=== PATIENT | female | born 1960 | race Caucasian/White ===

== ENCOUNTER 2019-04-22 05:40 | Day surgery (SDC) | payer OTHER ==
[~2019-04-22 05:40] MED LIST: ACTOS15 MG PO; AMARYL PO; AVAPRO300 MG PO; CARAFATE PO; CRESTOR PO; METFORMIN HCL850 MG PO; NABUMETONE500 MG PO; NORVASC2.5 M1 PO; PEPCI PO; PERCOCET 5/3251 TAB PO; SYNTHROID150 MCG PO
[2019-04-22] MEDS ORDERED: NABUMETONE500 MG PO (09:36)
[2019-04-22] MEDS ORDERED: PERCOCET 5-3251 EACH PO (09:36)
== END 2019-04-22 13:10 | disposition home or self-care (01) ==
LOC: CIR.AMB 05:40
DX: M23.321 Other meniscus derangements, posterior horn of medial meniscus, right knee (principal); M23.311 Other meniscus derangements, anterior horn of medial meniscus, right knee; M23.351 Other meniscus derangements, posterior horn of lateral meniscus, right knee; M94.261 Chondromalacia, right knee; M65.861 Other synovitis and tenosynovitis, right lower leg

== ENCOUNTER 2021-04-19 07:24 | Day surgery (SDC) | payer OTHER ==
[~2021-04-19 07:24] MED LIST changes: +JANUVIA100 MG PO; +PERCOCET 5-3251 EACH PO; +ROSUVASTATIN CAL5 MG PO
[2021-04-19] MEDS ORDERED: PERCOCET 5-3251 EACH PO (11:04)
[2021-04-19] MEDS ORDERED: NABUMETONE500 MG PO (11:05)
== END 2021-04-19 14:00 | disposition home or self-care (01) ==
LOC: CIR.AMB 07:24
PROVIDERS: ATTEND Orthopaedic Surgery
DX: M75.122 Complete rotator cuff tear or rupture of left shoulder, not specified as traumatic (principal); M22.42 Chondromalacia patellae, left knee; M75.52 Bursitis of left shoulder; M24.612 Ankylosis, left shoulder; M66.822 Spontaneous rupture of other tendons, left upper arm; Z20.822 Contact with and (suspected) exposure to COVID-19

== ENCOUNTER 2025-04-20 07:45 | Inpatient (IN) | payer OTHER ==
[~2025-04-20] VITALS: Ht 160 cm; Wt 88.5 kg
[2025-04-20] MEDS ORDERED: SYNTHROID150 MCG PO (08:24)
[2025-04-20] MEDS ORDERED: SYNTHROID137 MCG PO (08:24)
[2025-04-20] MEDS ORDERED: CARAFATE1 GM/10 ML (08:27)
[2025-04-20] MEDS ORDERED: PEPCID AC20 MG PO (08:27)
[2025-04-20] MEDS ORDERED: TRULICITY1.5 MG/0.5 (08:27)
[2025-04-20 08:31] VITALS: BP 123/75
[2025-04-20 08:37] LABS: BASO % 0.7 % (0.1-1.2); EOS # 0.23 (0.04-0.54); EOS % 2.6 % (0.7-7.0); HEMATOCRIT 37.9 % (34.1-44.9); HEMOGLOBIN 12.9 g/dL (11.2-15.7); LYMPH # 2.62 (1.18-3.74); LYMPH % 29.2 % (19.3-53.1); MEAN CORPUSCULAR HEMOGLOBIN 30.4 pg (25.6-32.2); MONO # 0.48 (0.24-0.82); MONO % 5.3 % (4.7-12.5); NEUT # 5.56 (1.56-6.13); NEUT % 61.9 % (34.0-71.1); PLATELET COUNT 337 K/uL (163-369); RED BLOOD COUNT 4.24 M/uL (3.93-5.22); RED CELL DISTRIBUTION WIDTH 13.6 % (11.6-14.4)
[2025-04-20 08:44] LABS: URINE APPEARANCE Clear; URINE BILIRRUBIN Negative (NEGATIVE); URINE BLOOD Negative; URINE COLOR Yellow; URINE GLUCOSE Negative (NEGATIVE); URINE KETONE Negative (NEGATIVE); URINE LEUKOCYTE Negative; URINE NITRATE Negative; URINE PROTEIN Negative (NEGATIVE); URINE UROBILINOGEN 0.2 E.U./dl
[2025-04-20 08:45] LABS: URINE BACTERIA 45.2 uL (0.0-1933); URINE EPITHELIAL CELLS 4.7 uL (0.0-38.8); URINE WBC 3.7 uL (0.0-23.2)
[2025-04-20 09:09] LABS: INR < 0.93; PARTIAL THROMBOPLASTIN TIME 25.8 SECONDS (22.0-34.0)
[2025-04-20 09:14] LABS: URINE CAST 0.14 uL (0.0-1.40); URINE RBC 0.2 uL (0.0-20.8)
[2025-04-20 09:37] LABS: BILIRUBIN TOTAL 0.35 mg/dL (0.3-1.2); CALCIUM 9.5 mg/dL (8.5-10.1); CREATININE SERUM 1.01 mg/dL (0.55-1.02); GFR 55.18; GLOBULINA 3.5 G/DL (2.4-3.5); POTASSIUM 4.11 mEq/L (3.5-5.1); TOTAL PROTEIN 7.5 gm/dL (6.4-8.2)
[2025-04-28] MEDS ORDERED: BUPIVACAINE HCL/MPF 0.5% 30ML VIAL ONE (06:33)
[2025-04-28] MEDS ORDERED: KETOROLAC TROMETHAMINE 60 MG VIAL IM ONE (06:33)
[2025-04-28] MEDS ORDERED: VANCOMYCIN HCL 1,000 MG VIAL ONE (06:33)
[2025-04-28] MEDS ORDERED: LIDOCAINE HCL 1%/EPINEPHRINE 20ML VIAL IJ ONE (06:33)
[2025-04-28] MEDS ORDERED: CEFAZOLIN SODIUM 1,000 MG VIAL ONE ×2 (06:51→12:09)
[2025-04-28] MEDS ORDERED: TRANEXAMIC ACID 100MG/1ML (1000MG) AMPUL IV ONE (07:05)
[2025-04-28] MEDS ORDERED: MORPHINE SULFATE 4 MG/ML VIAL IV ONE ×2 (08:30→11:15)
[2025-04-28] MEDS ORDERED: OxyCODONE HCL 5 MG TABLET (ROXICODONE) PO PRN (10:00)
[2025-04-28] MEDS ORDERED: ONDANSETRON HCL 2 MG/ML VIAL IV PRN (10:00)
[2025-04-28] MEDS ORDERED: MORPHINE SULFATE 4 MG/ML CARTRIDGE IV SCH (12:00)
[2025-04-28] MEDS ORDERED: CEFAZOLIN SODIUM 1,000 MG VIAL IV SCH (12:00)
[2025-04-28] MEDS ORDERED: ACETAMINOPHEN 325 MG TABLET PO PRN (12:15)
[2025-04-28 13:40] VITALS: BP 109/61; O2SAT 95
[2025-04-28 16:00] VITALS: BP 105/57; O2SAT 100
[2025-04-28] MEDS ORDERED: INSULIN LISPRO 1,000 UNIT/10 ML UNITS SUBCUTANEO PRN (20:15)
[2025-04-28] MEDS ORDERED: DEXTROSE 50 % IN WATER 0.5 G/ML VIAL IV PRN (20:15)
[2025-04-28] MEDS ORDERED: ORPHENADRINE CITRATE 100 MG TABLET PO SCH (21:00)
[2025-04-28] MEDS ORDERED: GABAPENTIN 100 MG CAPSULE PO SCH (21:00)
[2025-04-28] MEDS ORDERED: ENALAPRILAT DIHYDRATE 1.25 MG/ML VIAL IV PRN (23:15)
[2025-04-29 01:40] VITALS: BP 112/57; O2SAT 96
[2025-04-29] MEDS ORDERED: LEVOTHYROXINE SODIUM 150 MCG TABLET PO SCH (06:00)
[2025-04-29 08:15] LABS: BASO % 0.5 % (0.1-1.2); EOS % 0.9 % (0.7-7.0); HEMATOCRIT 31.2 % (34.1-44.9); HEMOGLOBIN 10.6 g/dL (11.2-15.7); LYMPH # 2.04 (1.18-3.74); LYMPH % 17.6 % (19.3-53.1); MEAN CORPUSCULAR HEMOGLOBIN 30.1 pg (25.6-32.2); MONO # 1.16 (0.24-0.82); NEUT # 8.17 (1.56-6.13); NEUT % 70.7 % (34.0-71.1); PLATELET COUNT 271 K/uL (163-369); RED BLOOD COUNT 3.52 M/uL (3.93-5.22); RED CELL DISTRIBUTION WIDTH 14.1 % (11.6-14.4)
[2025-04-29 08:47] VITALS: BP 155/87; O2SAT 98
[2025-04-29] MEDS ORDERED: IRBESARTAN 300 MG TABLET PO SCH (09:00)
[2025-04-29] MEDS ORDERED: ENOXAPARIN SODIUM 30 MG/0.3 ML SYRINGE SUBCUTANEO SCH (09:00)
[2025-04-29] MEDS ORDERED: FAMOTIDINE/PF 20 MG in 0.9 % SODIUM CHLORIDE 8 ML IV PUSH SCH (09:00)
[2025-04-29 16:52] VITALS: BP 121/73; O2SAT 97
[2025-04-29] MEDS ORDERED: VITAMIN B COMPLEX 1 EACH PO SCH (17:00)
[2025-04-29] MEDS ORDERED: SOD FERRIC GLUC COMPLX/SUCROSE 62.5 MG/5 ML AMPUL IV SCH (17:00)
[2025-04-29] MEDS ORDERED: ROSUVASTATIN CALCIUM 10 MG TABLET PO SCH (17:00)
[2025-04-29] MEDS ORDERED: Cyanocobalamin/Mecobalamin 1 TAB.SL SL SCH (17:00)
[2025-04-30 00:48] VITALS: BP 122/71; O2SAT 97
[2025-04-30 06:15] LABS: BASO % 0.3 % (0.1-1.2); EOS # 0.01 (0.04-0.54); EOS % 0.1 % (0.7-7.0); HEMOGLOBIN 10.3 g/dL (11.2-15.7); LYMPH # 2.02 (1.18-3.74); LYMPH % 17.4 % (19.3-53.1); MEAN CORPUSCULAR HEMOGLOBIN 30.7 pg (25.6-32.2); MONO # 1.03 (0.24-0.82); MONO % 8.9 % (4.7-12.5); NEUT # 8.46 (1.56-6.13); PLATELET COUNT 253 K/uL (163-369); RED BLOOD COUNT 3.36 M/uL (3.93-5.22); RED CELL DISTRIBUTION WIDTH 13.8 % (11.6-14.4)
[2025-04-30 08:40] VITALS: BP 129/73; O2SAT 97
[2025-04-30] MEDS ORDERED: OXYCODONE HCL5 MG PO (12:57)
[2025-04-30] MEDS ORDERED: GABAPENTIN100 MG PO (12:57)
[2025-04-30] MEDS ORDERED: XARELTO10 MG PO (12:57)
[2025-04-30] MEDS ORDERED: NORFLEX100MG PO (12:57)
== END 2025-04-30 14:55 | disposition home or self-care (01) | DRG 470 ==
LOC: O/R 04-28 05:43 → SURH 04-28 05:43
PROVIDERS: ADMIT Orthopaedic Surgery; ATTEND Orthopaedic Surgery
PROC: 0SRC0JZ Replacement of Right Knee Joint with Synthetic Substitute, Open Approach (ICD-10-PCS; principal; 2025-04-28 10:00)
DX: M17.11 Unilateral primary osteoarthritis, right knee (principal); D62 Acute posthemorrhagic anemia; M85.661 Other cyst of bone, right lower leg; I10 Essential (primary) hypertension; E11.9 Type 2 diabetes mellitus without complications; Z79.4 Long term (current) use of insulin